=== PATIENT | female | born 1960 | race Caucasian/White ===

== ENCOUNTER → 2020-07-09 | Day surgery (SDC) | payer OTHER ==
[~2020-07-09] MED LIST: BUSPIRONE HCL10 MG PO; METFORMIN HCL500 MG PO; PRAVACHOL20 MG PO; REQUIP3 MG PO; SINGULAIR10 MG PO; VIIBRYD40 MG PO; VITAMIN D3125 MC2 PO
== END | disposition home or self-care (01) ==
LOC: FAS 07:42
DX: Z12.11 Encounter for screening for malignant neoplasm of colon (principal); K63.5 Polyp of colon; K62.1 Rectal polyp; K57.30 Diverticulosis of large intestine without perforation or abscess without bleeding; E11.9 Type 2 diabetes mellitus without complications; F17.210 Nicotine dependence, cigarettes, uncomplicated; M19.90 Unspecified osteoarthritis, unspecified site; Z20.822 Contact with and (suspected) exposure to COVID-19; Z83.3 Family history of diabetes mellitus; Z80.8 Family history of malignant neoplasm of other organs or systems; Z79.899 Other long term (current) drug therapy
CPT/HCPCS: J2250; J2704; J7120